=== PATIENT | female | born 1950 | race Two or more races ===

== ENCOUNTER → 2024-06-27 09:48 | Outpatient (CLI) | payer OTHER | END | disposition home or self-care (01) | LOC: NUCLEAR 09:48 | PROVIDERS: ATTEND Internal Medicine Hematology & Oncology | DX: I26.99 Other pulmonary embolism without acute cor pulmonale (principal); I10 Essential (primary) hypertension ==

== ENCOUNTER 2024-08-20 07:10 | Outpatient (CLI) | payer OTHER ==
[2024-08-20 09:10] LABS: BASO % 0.6 % (0.1-1.2); EOS # 0.15 (0.04-0.54); EOS % 3.2 % (0.7-7.0); HEMATOCRIT 39.8 % (34.1-44.9); HEMOGLOBIN 13.1 g/dL (11.2-15.7); LYMPH # 1.99 (1.18-3.74); LYMPH % 42.3 % (19.3-53.1); MEAN CORPUSCULAR HEMOGLOBIN 27.9 pg (25.6-32.2); MONO # 0.47 (0.24-0.82); NEUT # 2.06 (1.56-6.13); NEUT % 43.7 % (34.0-71.1); PLATELET COUNT 237 K/uL (163-369); RED BLOOD COUNT 4.69 M/uL (3.93-5.22); RED CELL DISTRIBUTION WIDTH 14.6 % (11.6-14.4)
[2024-08-20 10:02] LABS: % SATURACION 33.3 % (15-50); ALBUMIN 3.7 gm/dL (3.4-5.0); BILIRUBIN TOTAL 0.51 mg/dL (0.3-1.2); CALCIUM 9.3 mg/dL (8.5-10.1); CREATININE SERUM 1.21 mg/dL (0.55-1.02); FERRITIN 102.3 NG/ML (8-252); GFR 43.62; GLOBULINA 3.9 G/DL (2.4-3.5); POTASSIUM 5.07 mEq/L (3.5-5.1); TOTAL PROTEIN 7.6 gm/dL (6.4-8.2)
[2024-08-22 09:44] LABS: FOLIC ACID 7.04 ng/ml (4.78-20)
[2024-08-23 07:50] LABS: MANUAL PLATELET COUNT 250
[2024-08-23 13:08] LABS: ANTI CARDIO IGA 14 APL U/mL (0-11); ANTI CARDIO IGG < 9 GPL U/mL (0-14); ANTI CARDIO IGM < 9 MPL U/mL (0-12)
[2024-08-25 17:12] LABS: dRVVT 77.8 sec (0.0-47.0); interp Comment: (.); ptt-la 38.9 sec (0.0-43.5)
[2024-08-25 19:08] LABS: beta 2 gly iga < 9 (0-25); beta 2 gly igg < 9 (0-20); beta 2 gly igm < 9 (0-32)
[2024-08-26 09:08] LABS: TRANSFERIN 253 mg/dL (192-364)
== END 2024-08-20 07:25 | disposition home or self-care (01) ==
LOC: LAB 07:10
PROVIDERS: ATTEND Internal Medicine Hematology & Oncology
DX: I10 Essential (primary) hypertension (principal); I26.99 Other pulmonary embolism without acute cor pulmonale; D50.8 Other iron deficiency anemias; R79.9 Abnormal finding of blood chemistry, unspecified; R74.02 Elevation of levels of lactic acid dehydrogenase [LDH]; K76.89 Other specified diseases of liver; D68.69 Other thrombophilia; D68.62 Lupus anticoagulant syndrome

== ENCOUNTER → 2024-11-11 08:59 | Outpatient (CLI) | payer OTHER ==
[2024-11-11 11:29] LABS: T4 FREE 0.94 NG/ML (0.76-1.46); TSH 2.46 uIU/mL (0.358-3.74)
[2024-11-12 09:08] LABS: ANTI THYROID PEROXIDASE 11.0 IU/mL (0-34); CA 125 23.8 U/mL (0.0-38.1); CA 15-3 18.4 U/mL (0.0-25.0); CA 19-9 14 U/mL (0-35)
[2024-11-13 15:07] LABS: g6pd quant 242 (127-427)
[2024-11-14 13:12] LABS: PARIETAL CELL ANTIBODIES 1.7 Units (0.0-20.0)
== END | disposition home or self-care (01) ==
LOC: LAB 08:59
PROVIDERS: ATTEND Internal Medicine Hematology & Oncology
DX: D50.8 Other iron deficiency anemias (principal); D55.0 Anemia due to glucose-6-phosphate dehydrogenase [G6PD] deficiency; D51.1 Vitamin B12 deficiency anemia due to selective vitamin B12 malabsorption with proteinuria; D51.0 Vitamin B12 deficiency anemia due to intrinsic factor deficiency; E03.8 Other specified hypothyroidism; E06.3 Autoimmune thyroiditis; C50.919 Malignant neoplasm of unspecified site of unspecified female breast; C25.9 Malignant neoplasm of pancreas, unspecified; D68.59 Other primary thrombophilia; I10 Essential (primary) hypertension; I26.99 Other pulmonary embolism without acute cor pulmonale

== ENCOUNTER 2024-12-06 09:36 | Outpatient (CLI) | payer OTHER | END 2024-12-06 09:37 | disposition home or self-care (01) | LOC: NUCLEAR 09:36 | PROVIDERS: ATTEND Internal Medicine Pulmonary Disease | DX: R06.02 Shortness of breath (principal) | CPT/HCPCS: 78582; A9540; A9567 ==